=== PATIENT | female | born 1980 | race Caucasian/White ===

== ENCOUNTER 2018-10-12 17:33 | Emergency (ER) | payer MEDICAID, OTHER ==
[~2018-10-12] VITALS: Ht 167.6 cm; Wt 70.0 kg
[2018-10-12] MEDS ORDERED: ACETAMINOPHEN 500 MG TABLET ONE (17:55)
--- NOTE | 2018-10-12 18:01 | NUR ---
Pt wheeled to room with EDT and then immediatly ambulated to bathroom, urine sample obtained. Pt back to room and changed into gown.
--- NOTE | 2018-10-12 18:03 | NUR ---
Dr. Hernandez at bedside to evaluate pt.
[2018-10-12 18:30] LABS: MEAN CORPUSCULAR HEMOGLOBIN 31.4 pg (27.0-34.8); MEAN CORPUSCULAR HGB CONC 33.8 g/dL (32.4-35.8); MEAN CORPUSCULAR VOLUME 92.7 fL (80-100); MEAN PLATELET VOLUME 7.4 fL (7.4-10.4); PLATELET COUNT 389 x10^3/uL (130-400); RED BLOOD COUNT 4.66 x10^6/uL (3.82-5.3); RED CELL DISTRIBUTION WIDTH 14.2 % (9.6-15.2)
--- NOTE | 2018-10-12 18:36 | NUR ---
US guided PIV started.
[2018-10-12 18:43] LABS: MICROSCOPIC AUTO
[2018-10-12 18:45] LABS: ALANINE AMINOTRANSFERASE 12 U/L (12-78); ALBUMIN 3.1 g/dL (3.4-5.0); ANION GAP 9 mmol/L (5-15); CALCIUM 8.5 mg/dL (8.5-10.1); CHLORIDE 98 mmol/L (98-107); CREATININE 0.84 mg/dL (0.55-1.02)
[2018-10-12 18:53] LABS: ALKALINE PHOSPHATASE 69 U/L (45-117); BILIRUBIN,TOTAL 0.6 mg/dL (0.2-1.0); TOTAL PROTEIN 7.8 g/dL (6.4-8.2)
[2018-10-12] MEDS ORDERED: SODIUM CHLORIDE FLUSH 10ML SYR IVF ONE (19:00)
[2018-10-12] MEDS ORDERED: ACETAMINOPHEN 500 MG TABLET PO ONE (19:00)
[2018-10-12 19:14] LABS: CULTURE INDICATED? YES
[2018-10-12 19:30] LABS: MD YES
[2018-10-12] MEDS ORDERED: METOCLOPRAMIDE 5 MG/ML, 2ML IVPush ONE (19:30)
[2018-10-12] MEDS ORDERED: POTASSIUM CHLORIDE 10% 40 MEQ/30 ML UDC PO ONE (19:30)
[2018-10-12] MEDS ORDERED: CEFTRIAXONE PMX 1GM/50ML 50 ML IVPB ONE (19:30)
[2018-10-12] MEDS ORDERED: MAGNESIUM SULFATE 1 GM in SODIUM CHLORIDE 0.9% 50 ML IV ONE (19:30)
[2018-10-12] MEDS ORDERED: DIPHENHYDRAMINE 50 MG/ML, 1ML IVPush ONE (19:30)
[2018-10-12 19:32] LABS: BAND#(MANUAL) 0.16 x10^3/uL; BANDS%(MANUAL) 1 % (0-7); LYMPH#(MANUAL) 1.91 x10^3/uL (1-3.4); LYMPHS% (MANUAL) 12 % (22-44); MONOS#(MANUAL) 1.75 x10^3/uL (0.3-2.7); MONOS% (MANUAL) 11 % (2-9); SEG#(MANUAL) 12.08 x10^3/uL (1.8-6.8); SEGS% (MANUAL) 76 % (42-75)
[2018-10-12 19:33] LABS: <PLATELET ESTIMATE> ADEQUATE; <PLT MORPHOLOGY> NORMAL PLT MORPH; <RBC MORPHOLOGY> NORMAL
[2018-10-12] MEDS ORDERED: CEFTRIAXONE PMX 1GM/50ML 50 ML ONE (19:37)
[2018-10-12] MEDS ORDERED: METOCLOPRAMIDE 5 MG/ML, 2ML ONE (19:37)
[2018-10-12] MEDS ORDERED: DIPHENHYDRAMINE 50 MG/ML, 1ML ONE (19:37)
[2018-10-12] MEDS ORDERED: KETOROLAC 30 MG/1 ML ONE (19:37)
[2018-10-12] MEDS ORDERED: POTASSIUM CHLORIDE 10% 40 MEQ/30 ML UDC ONE (19:38)
--- NOTE | 2018-10-12 19:49 | NUR ---
ernst rn: antibiotics started after blood cultures x 2 were drawn.
[2018-10-12] MEDS ORDERED: KETOROLAC 30 MG/1 ML IVPush ONE (20:00)
--- NOTE | 2018-10-12 21:22 | NUR ---
IV Mag complete. Pt's temperature back to normal, all other VSS.
[2018-10-12 21:23] VITALS: BP 95/55
--- NOTE | 2018-10-12 21:34 | NUR ---
Patient/Caregiver given discharge instructions and they have confirmed that they understand the instructions. Patient wheeled to discharge area for safe discharge, with family members.
== END 2018-10-12 21:36 | disposition home or self-care (01) ==
LOC: ED 20:07
DX: N10 Acute pyelonephritis (principal); E87.6 Hypokalemia; F17.200 Nicotine dependence, unspecified, uncomplicated
CPT/HCPCS: 36415; 80053; 81001; 83605; 84703; 85025; 87040; 87077; 87086; 87186; 96365; 96367; 96375; 99283; J0696; J1200; J1885; J2765; J3475

== ENCOUNTER 2019-04-25 08:17 | Emergency (ER) | payer MEDICAID, OTHER ==
[~2019-04-25] VITALS: Ht 165.1 cm; Wt 63.9 kg
--- NOTE | 2019-04-25 08:52 | NUR ---
PT WITH C/O CP/SOB THAT COMES AND GOES. PT STATES NO HX OF HEART DISEASE. DENIES TRAUMA. PT TO BP, CARD MONTIOR, CONT PULSE OX.
[2019-04-25] MEDS ORDERED: KETOROLAC 60 MG/2 ML ONE (09:19)
--- NOTE | 2019-04-25 09:19 | NUR ---
Rosalia garcia in ED - 04/25/19 at 0919 by [email or web address] PT TO [address] AT THIS TIME.
--- NOTE | 2019-04-25 09:24 | NUR ---
PT MEDICATED PER MAR, VSS
[2019-04-25] MEDS ORDERED: KETOROLAC 30 MG/1 ML IM ONE (09:30)
[2019-04-25 10:01] LABS: BASOPHILS # (AUTO) 0.04 x10^3/uL (0-0.1); BASOPHILS % (AUTO) 0 % (0-1); EOSINOPHILS # (AUTO) 0.01 x10^3/uL (0-0.4); EOSINOPHILS % (AUTO) 0 % (1-7); LYMPHOCYTES % (AUTO) 23 % (22-44); MD NO; MEAN CORPUSCULAR HGB CONC 33.1 g/dL (32.4-35.8); MEAN CORPUSCULAR VOLUME 96.6 fL (80-100); MEAN PLATELET VOLUME 7.2 fL (7.4-10.4); MONOCYTES # (AUTO) 0.74 x10^3/uL (0.2-0.8); MONOCYTES % (AUTO) 8 % (2-9); NEUTROPHILS # (AUTO) 6.42 x10^3/uL (1.8-6.8); NEUTROPHILS % (AUTO) 68 % (42-75); PLATELET COUNT 290 x10^3/uL (130-400); RED BLOOD COUNT 4.16 x10^6/uL (3.82-5.3); RED CELL DISTRIBUTION WIDTH 12.9 % (9.6-15.2)
[2019-04-25 10:12] LABS: ALBUMIN 3.9 g/dL (3.4-5.0); ANION GAP 8 mmol/L (5-15); CALCIUM 8.7 mg/dL (8.5-10.1); CHLORIDE 107 mmol/L (98-107)
[2019-04-25 10:17] LABS: ALANINE AMINOTRANSFERASE 20 U/L (12-78); ALKALINE PHOSPHATASE 34 U/L (45-117); BILIRUBIN,TOTAL 0.9 mg/dL (0.2-1.0); CREATININE 0.81 mg/dL (0.55-1.02); TOTAL PROTEIN 7.2 g/dL (6.4-8.2); TROPONIN I < 0.015 ng/mL (0.000-0.045)
[2019-04-25 10:19] LABS: CULTURE INDICATED? YES; MICROSCOPIC INDICATED
--- NOTE | 2019-04-25 10:27 | NUR ---
PT STATES RELEIF FROM PAIN MEDICATION. NAD NOTED
[2019-04-25 11:35] VITALS: BP 114/75
--- NOTE | 2019-04-25 11:35 | NUR ---
TASK RN: PT RESTING ON GURNEY. NADN. MOON.
[2019-04-25] MEDS ORDERED: ONDANSETRON ODT 4 MG ONE (11:40)
[2019-04-25] MEDS ORDERED: ONDANSETRON ODT 4 MG PO ONE (12:00)
== END 2019-04-25 11:59 | disposition home or self-care (01) ==
LOC: ED 09:46
DX: M94.0 Chondrocostal junction syndrome [Tietze] (principal); N30.00 Acute cystitis without hematuria
CPT/HCPCS: 36415; 71045; 80053; 81001; 84484; 85025; 87086; 93005; 96372; 99284; J1885; Q0162